=== PATIENT | male | born 1945 | race Caucasian/White ===

== ENCOUNTER 2017-10-26 06:05 | Day surgery (SDC) | payer MEDICARE, OTHER ==
[~2017-10-26] VITALS: Ht 185.4 cm; Wt 88.6 kg
[~2017-10-26 06:05] MED LIST: DABI150C PO; MESA1.2T PO; MESA10003 PO; PRAV80TA2 PO; SOTA120T26 PO; SOTA160T PO; TAMS0.4C2 PO; flomax; tamsulosin
[2017-10-26 06:28] VITALS: BP 152/102
[2017-10-26] MEDS ORDERED: SODIUM CHLORIDE 0.9% 1,000 ML IV SCH (06:30)
[2017-10-26] MEDS ORDERED: MESA1.2T PO (06:37)
[2017-10-26] MEDS ORDERED: APIX5TAB PO (06:37)
[2017-10-26] MEDS ORDERED: ASPI-650 PO (06:37)
[2017-10-26] MEDS ORDERED: FLEC100T PO (06:37)
[2017-10-26] MEDS ORDERED: SERT100T5 PO (06:38)
[2017-10-26] MEDS ORDERED: ALPR0.25 PO (06:38)
[2017-10-26 07:01] LABS: BASOPHILS # (AUTO) 0.02 x10^3/uL (0-0.1); BASOPHILS % (AUTO) 1 % (0-1); EOSINOPHILS # (AUTO) 0.04 x10^3/uL (0-0.4); EOSINOPHILS % (AUTO) 1 % (1-7); LYMPHOCYTES % (AUTO) 23 % (22-44); MD NO; MEAN CORPUSCULAR HEMOGLOBIN 31.4 pg (27.5-34.5); MEAN CORPUSCULAR HGB CONC 33.8 g/dL (33.2-36.2); MEAN PLATELET VOLUME 7.6 fL (7.4-10.4); MONOCYTES # (AUTO) 0.39 x10^3/uL (0.2-0.8); MONOCYTES % (AUTO) 9 % (2-9); NEUTROPHILS # (AUTO) 2.97 x10^3/uL (1.8-6.8); NEUTROPHILS % (AUTO) 67 % (42-75); PLATELET COUNT 219 x10^3/uL (130-400); RED BLOOD COUNT 4.19 x10^6/uL (4.38-5.82); RED CELL DISTRIBUTION WIDTH 14.6 % (9.4-14.8)
[2017-10-26 07:11] LABS: ANION GAP 7 mmol/L (5-15); CALCIUM 8.9 mg/dL (8.5-10.1); CHLORIDE 114 mmol/L (98-107); CREATININE 0.94 mg/dL (0.7-1.3)
[2017-10-26 07:12] LABS: ALANINE AMINOTRANSFERASE 24 U/L (12-78); ALBUMIN 3.6 g/dL (3.4-5.0)
[2017-10-26 07:14] LABS: ALKALINE PHOSPHATASE 88 U/L (45-117); BILIRUBIN,TOTAL 0.9 mg/dL (0.2-1.0); TOTAL PROTEIN 7.2 g/dL (6.4-8.2)
[2017-10-26] MEDS ORDERED: PROPOFOL 10 MG/ML, 20ML ONE (07:45)
== END 2017-10-26 09:29 | disposition home or self-care (01) ==
LOC: CACL 06:05
PROVIDERS: ATTEND Internal Medicine Cardiovascular Disease
DX: I48.0 Paroxysmal atrial fibrillation (principal); E11.9 Type 2 diabetes mellitus without complications; E78.00 Pure hypercholesterolemia, unspecified; I10 Essential (primary) hypertension; Z87.891 Personal history of nicotine dependence; Z79.82 Long term (current) use of aspirin; Z98.890 Other specified postprocedural states; Z79.01 Long term (current) use of anticoagulants
CPT/HCPCS: 36415; 71046; 80053; 85025; 92960; 93312; 93321; 93325; J2704

== ENCOUNTER 2018-03-10 08:13 | Observation (INO) | payer MEDICARE, OTHER ==
[2018-03-07 11:20] LABS: BASOPHILS # (AUTO) 0.03 x10^3/uL (0-0.1); BASOPHILS % (AUTO) 1 % (0-1); EOSINOPHILS # (AUTO) 0.03 x10^3/uL (0-0.4); EOSINOPHILS % (AUTO) 1 % (1-7); LYMPHOCYTES # (AUTO) 1.04 x10^3/uL (1-3.4); LYMPHOCYTES % (AUTO) 21 % (22-44); MD NO; MEAN CORPUSCULAR HEMOGLOBIN 30.5 pg (27.5-34.5); MEAN CORPUSCULAR HGB CONC 34.1 g/dL (33.2-36.2); MEAN CORPUSCULAR VOLUME 89.4 fL (81-97); MEAN PLATELET VOLUME 7.7 fL (7.4-10.4); MONOCYTES % (AUTO) 8 % (2-9); NEUTROPHILS # (AUTO) 3.47 x10^3/uL (1.8-6.8); NEUTROPHILS % (AUTO) 70 % (42-75); PLATELET COUNT 174 x10^3/uL (130-400); RED CELL DISTRIBUTION WIDTH 16.2 % (9.4-14.8)
[2018-03-07 11:32] LABS: ALBUMIN 3.6 g/dL (3.4-5.0); ANION GAP 4 mmol/L (5-15); CALCIUM 8.3 mg/dL (8.5-10.1); CHLORIDE 110 mmol/L (98-107)
[2018-03-07 11:37] LABS: ALANINE AMINOTRANSFERASE 41 U/L (12-78); ALKALINE PHOSPHATASE 85 U/L (45-117); BILIRUBIN,TOTAL 0.9 mg/dL (0.2-1.0); CREATININE 0.99 mg/dL (0.7-1.3); TOTAL PROTEIN 7.1 g/dL (6.4-8.2)
[~2018-03-10] VITALS: Ht 185.4 cm; Wt 86.4 kg
[~2018-03-10 08:13] MED LIST changes: +ALPR0.25 PO; +APIX5TAB PO; +ASPI-650 PO; +FLEC100T PO; +SERT100T5 PO
[2018-03-10] MEDS ORDERED: SODIUM CHLORIDE 0.9% 1,000 ML IV SCH (09:37)
[2018-03-10] MEDS ORDERED: AMIO200T42 PO (09:52)
[2018-03-10 10:49] VITALS: BP 163/99
[2018-03-10] MEDS ORDERED: PHENYLEPHRINE 10 MG/ML ONE (11:18)
[2018-03-10] MEDS ORDERED: ROCURONIUM 10 MG/ML,10ML ONE (11:18)
[2018-03-10] MEDS ORDERED: SUCCINYLCHOLINE 20 MG/ML, 10ML ONE (11:18)
[2018-03-10] MEDS ORDERED: MIDAZOLAM 1 MG/ML, 2ML ONE (11:22)
[2018-03-10] MEDS ORDERED: FENTANYL PF 250 MCG/5ML ONE (11:22)
[2018-03-10] MEDS ORDERED: DEXAMETHASONE 4 MG/ML, 1ML ONE ×2 (11:44)
[2018-03-10] MEDS ORDERED: ONDANSETRON 2MG/ML, 2ML ONE ×2 (11:44)
[2018-03-10] MEDS ORDERED: HEPARIN 1,000 UNITS/ML, 10ML ONE ×2 (11:44)
[2018-03-10] MEDS ORDERED: EPHEDRINE 50 MG/ML, 1ML ONE (12:03)
[2018-03-10] MEDS ORDERED: PROTAMINE SULFATE 10 MG/ML, 5ML ONE (13:53)
[2018-03-10] MEDS ORDERED: ZOLPIDEM 5MG TABLET PO PRN (14:30)
[2018-03-10] MEDS ORDERED: PROMETHAZINE 12.5 MG SUPP PR PRN (15:00)
[2018-03-10] MEDS ORDERED: ONDANSETRON ODT 8 MG PO PRN (15:00)
[2018-03-10] MEDS ORDERED: HALOPERIDOL 5 MG/ML IV PRN (15:00)
[2018-03-10] MEDS ORDERED: MORPHINE SULFATE 4 MG/ML, 1ML IVPush PRN (15:00)
[2018-03-10] MEDS ORDERED: hydrALAzine 20 MG/ML, 1ML IV PRN (15:00)
[2018-03-10] MEDS ORDERED: EPHEDRINE 50 MG/ML, 1ML IVPush PRN (15:00)
[2018-03-10] MEDS ORDERED: ALBUTEROL SULFATE 2.5 MG/3 ML NPPB PRN (15:00)
[2018-03-10] MEDS ORDERED: PROMETHAZINE 25 MG/ML, 1ML IV PRN (15:00)
[2018-03-10] MEDS ORDERED: MIDAZOLAM 1 MG/ML, 2ML IV PRN (15:00)
[2018-03-10] MEDS ORDERED: MEPERIDINE/PF 25MG/0.5ML IVPush PRN (15:00)
[2018-03-10] MEDS ORDERED: LABETALOL 5MG/ML, 20ML IV PRN (15:00)
[2018-03-10] MEDS ORDERED: HYDROmorphone 2 MG/ML, 1ML IVPush PRN (15:00)
[2018-03-10] MEDS ORDERED: OXYcodone 5 MG/5 ML ORAL.SOL UDC PO PRN (15:00)
[2018-03-10] MEDS ORDERED: DIAZEPAM 5 MG/ML, 2ML IVPush PRN (15:00)
[2018-03-10] MEDS ORDERED: ACETAMINOPHEN 325 MG TABLET PO PRN (15:00)
[2018-03-10] MEDS ORDERED: ONDANSETRON 2MG/ML, 2ML IV PRN (15:00)
[2018-03-10] MEDS ORDERED: FENTANYL PF 100 MCG/2ML IV PRN (15:00)
[2018-03-10] MEDS ORDERED: LABETALOL 20 MG/4 ML ONE (15:05)
[2018-03-10] MEDS ORDERED: hydrALAzine 20 MG/ML, 1ML ONE (15:15)
[2018-03-10] MEDS ORDERED: APIXABAN 5 MG TABLET ONE (15:23)
[2018-03-10] MEDS ORDERED: APIXABAN 5 MG TABLET PO ONE (15:30)
[2018-03-10 17:25] VITALS: BP 137/79
[2018-03-10] MEDS ORDERED: APIXABAN 5 MG TABLET PO SCH (21:00)
[2018-03-10] MEDS ORDERED: PRAVASTATIN 40 MG TABLET PO SCH (21:00)
[2018-03-10 21:12] VITALS: BP 145/82
[2018-03-11] MEDS: ACETAMINOPHEN 325 MG TABLET PO PRN ×2 (00:36→05:09)
[2018-03-11 02:43] VITALS: BP 130/74
[2018-03-11 07:35] VITALS: BP 118/72
[2018-03-11] MEDS ORDERED: SERTRALINE 100MG TABLET PO SCH (09:00)
[2018-03-11] MEDS ORDERED: ASPIRIN 325 MG TABLET EC PO SCH (09:00)
[2018-03-11] MEDS ORDERED: AMIODARONE 200 MG TABLET PO SCH (09:00)
[2018-03-11] MEDS ORDERED: APIXABAN 5 MG TABLET PO SCH (09:00)
[2018-03-11] MEDS ORDERED: TAMSULOSIN 0.4 MG CAP.ER.24H PO SCH (09:00)
== END 2018-03-11 16:05 | disposition home or self-care (01) ==
LOC: CACL 08:13 → ORIP 14:13 → 5SO 16:51
PROVIDERS: ADMIT Internal Medicine Cardiovascular Disease; ATTEND Internal Medicine Cardiovascular Disease
DX: I48.91 Unspecified atrial fibrillation (principal); I48.92 Unspecified atrial flutter; I45.9 Conduction disorder, unspecified; R42 Dizziness and giddiness; E11.9 Type 2 diabetes mellitus without complications; E78.00 Pure hypercholesterolemia, unspecified; I10 Essential (primary) hypertension; E78.5 Hyperlipidemia, unspecified
CPT/HCPCS: 36415; 71046; 80053; 85025; 85347; 93005; 93306; 93613; 93621; 93653; 93655; 93656; 93662; C1730; C1731; C1732; C1759; C1766; C1893; C1894; G0378; J0330; J0360; J1100; J1644; J2250; J2370; J2405; J2720; J3010

== ENCOUNTER 2019-05-25 08:08 | Observation (INO) | payer MEDICARE, OTHER ==
[2019-05-23 11:12] LABS: BASOPHILS # (AUTO) 0.02 x10^3/uL (0-0.1); BASOPHILS % (AUTO) 0 % (0-1); EOSINOPHILS # (AUTO) 0.04 x10^3/uL (0-0.4); EOSINOPHILS % (AUTO) 1 % (1-7); LYMPHOCYTES # (AUTO) 1.07 x10^3/uL (1-3.4); LYMPHOCYTES % (AUTO) 21 % (22-44); MD NO; MEAN CORPUSCULAR HEMOGLOBIN 31.4 pg (27.5-34.5); MEAN CORPUSCULAR HGB CONC 33.9 g/dL (33.2-36.2); MEAN CORPUSCULAR VOLUME 92.6 fL (81-97); MONOCYTES # (AUTO) 0.45 x10^3/uL (0.2-0.8); MONOCYTES % (AUTO) 9 % (2-9); NEUTROPHILS # (AUTO) 3.42 x10^3/uL (1.8-6.8); NEUTROPHILS % (AUTO) 68 % (42-75); PLATELET COUNT 224 x10^3/uL (130-400); RED BLOOD COUNT 4.86 x10^6/uL (4.38-5.82); RED CELL DISTRIBUTION WIDTH 14.2 % (9.4-14.8)
[2019-05-23 11:25] LABS: CALCIUM 9.3 mg/dL (8.5-10.1); CREATININE 0.91 mg/dL (0.7-1.3)
[2019-05-23 11:33] LABS: ANION GAP 3 mmol/L (5-15); CHLORIDE 113 mmol/L (98-107)
[~2019-05-25] VITALS: Ht 185.4 cm; Wt 91.7 kg
[~2019-05-25 08:08] MED LIST changes: +AMIO200T42 PO; +ASPI81TA45 PO; +MECL-101 PO; +SERT100T32 PO; -SERT100T5 PO; +SERT50TA28 PO
[2019-05-25] MEDS ORDERED: SODIUM CHLORIDE 0.9% 1,000 ML IV SCH (08:40)
[2019-05-25 08:41] VITALS: BP 165/86
[2019-05-25] MEDS ORDERED: FENTANYL PF 250 MCG/5ML ONE (09:39)
[2019-05-25] MEDS ORDERED: MIDAZOLAM 1 MG/ML, 2ML ONE (09:39)
[2019-05-25] MEDS ORDERED: HEPARIN 1,000 UNITS/ML, 30ML ONE (10:04)
[2019-05-25] MEDS ORDERED: ROCURONIUM 10MG/ML,5ML ONE (10:07)
[2019-05-25] MEDS ORDERED: SUCCINYLCHOLINE 20 MG/ML, 10ML ONE (10:07)
[2019-05-25] MEDS ORDERED: PROPOFOL 10 MG/ML, 20ML ONE (10:07)
[2019-05-25] MEDS ORDERED: LIDOCAINE 2%, 20ML ONE (10:21)
[2019-05-25] MEDS ORDERED: MECLIZINE 25 MG TABLET PO PRN (13:00)
[2019-05-25] MEDS ORDERED: APIXABAN 5 MG TABLET ONE (13:12)
[2019-05-25 14:49] VITALS: BP 157/79
[2019-05-25 19:30] VITALS: BP 115/71
[2019-05-25] MEDS: MESALAMINE 1.2 GM TABLET.DR PO SCH (20:47)
[2019-05-25] MEDS: FLECAINIDE 100MG TABLET PO SCH (20:49)
[2019-05-25] MEDS ORDERED: APIXABAN 5 MG TABLET PO SCH (21:00)
[2019-05-25] MEDS ORDERED: ATORVASTATIN 20 MG TABLET PO SCH (21:00)
[2019-05-25] MEDS: APIXABAN 5 MG TABLET PO SCH (21:49)
[2019-05-26 01:45] VITALS: BP 144/92
[2019-05-26 05:20] LABS: BASOPHILS # (AUTO) 0.02 x10^3/uL (0-0.1); BASOPHILS % (AUTO) 0 % (0-1); EOSINOPHILS # (AUTO) 0.07 x10^3/uL (0-0.4); EOSINOPHILS % (AUTO) 1 % (1-7); LYMPHOCYTES % (AUTO) 16 % (22-44); MD NO; MEAN CORPUSCULAR HEMOGLOBIN 30.7 pg (27.5-34.5); MEAN CORPUSCULAR HGB CONC 33.3 g/dL (33.2-36.2); MEAN PLATELET VOLUME 7.7 fL (7.4-10.4); MONOCYTES # (AUTO) 0.49 x10^3/uL (0.2-0.8); MONOCYTES % (AUTO) 8 % (2-9); NEUTROPHILS # (AUTO) 4.71 x10^3/uL (1.8-6.8); NEUTROPHILS % (AUTO) 75 % (42-75); PLATELET COUNT 198 x10^3/uL (130-400); RED BLOOD COUNT 4.05 x10^6/uL (4.38-5.82); RED CELL DISTRIBUTION WIDTH 14.1 % (9.4-14.8)
[2019-05-26 08:10] VITALS: BP 163/84
[2019-05-26] MEDS ORDERED: FLEC100T PO (08:49)
[2019-05-26] MEDS ORDERED: APIX5TAB PO (08:49)
[2019-05-26] MEDS: MESALAMINE 1.2 GM TABLET.DR PO SCH (08:56)
[2019-05-26] MEDS: APIXABAN 5 MG TABLET PO SCH (08:56)
[2019-05-26] MEDS: FLECAINIDE 100MG TABLET PO SCH (08:56)
[2019-05-26] MEDS ORDERED: ASPIRIN 81 MG TABLET EC PO SCH (09:00)
[2019-05-26] MEDS ORDERED: TAMSULOSIN 0.4 MG CAP.ER.24H PO SCH (09:00)
[2019-05-26] MEDS ORDERED: SERTRALINE 50MG TABLET PO SCH (09:00)
== END 2019-05-26 13:37 | disposition home or self-care (01) ==
LOC: CACL 08:08 → ORIP 13:03 → 5SO 14:11 → DCLOUNGE 05-26 13:28
PROVIDERS: ADMIT Internal Medicine Cardiovascular Disease; ATTEND Internal Medicine Cardiovascular Disease
DX: I48.91 Unspecified atrial fibrillation (principal); I48.92 Unspecified atrial flutter; I10 Essential (primary) hypertension; E11.9 Type 2 diabetes mellitus without complications; E66.9 Obesity, unspecified; Z87.891 Personal history of nicotine dependence; Z79.82 Long term (current) use of aspirin
CPT/HCPCS: 36415; 71046; 80048; 85025; 85347; 93306; 93613; 93655; 93656; 93662; C1730; C1732; C1759; C1766; C1893; C1894; G0378; J0330; J1644; J2250; J2704; J3010; J3490